=== PATIENT | male | born 1965 | race Caucasian/White ===

== ENCOUNTER → 2021-04-22 14:50 | Outpatient (CLI) | payer OTHER, SELFPAY ==
--- NOTE | 2021-04-22 14:55 | CT_ITS ---
STUDY: CT FACIAL BONES WITHOUT CONTRAST REASON FOR EXAM: Male, 56 years old. Pain and swelling RADIATION DOSAGE (If Supplied By Facility): CTDIvol = ( 33.06 ) mGy, DLP = ( 837.98 ) mGycm TECHNIQUE: The patient was scanned in a multi detector CT scanner. Sagittal and coronal images were reconstructed. Individualized dose optimization techniques were used for this CT. COMPARISON: None. FINDINGS: There is an acute fracture through the anterior nasal spine is soft tissue swelling as well as an acute fracture at the corner of the posterior nose and maxillary sinus and a mildly depressed fracture in the anterior maxillary sinus wall. This is somewhat diffuse soft tissue density within the nares and left maxillary sinus some of which is likely hemorrhage. There is no demonstrated zygomatic arch fracture or pterygoid plate fracture. Mild mucosal thickening noted in the mastoid air cells. CT/Sinus/Facial Bone IMPRESSION: Acute fractures to the anterior nasal spine, the junction of the medial left maxilla and the posterior nasal bone and the anterior inferior maxillary sinus wall. Associated soft tissue swelling There is extensive soft tissue densities within the paranasal sinuses with occlusion of the left ostiomeatal complex, some of this is likely hemorrhage Likely chronic mastoiditis Electronically Signed: Zander Potter MD at 15:29 EST , Service support ,
== END ==
PROVIDERS: PCP Physician Assistant; Referring Provider Otolaryngology; Visit Provider Otolaryngology
DX: J32.8 Other chronic sinusitis (principal)
CPT/HCPCS: 70486

== ENCOUNTER 2021-05-25 06:10 | Day surgery (SDC) | payer OTHER, SELFPAY ==
[2021-05-25] VITALS (12 sets, daily range): BP systolic 111–133; BP diastolic 80–99; PULSE 68–103; RESP 16–18; TEMP 36.2–36.6; O2SAT 88–97; BMI 27.5
--- NOTE | 2021-05-25 06:13 | EKG12_ITS ---
Test Reason : PRE OP Blood Pressure : / mmHG Vent. Rate : 077 BPM Atrial Rate : 077 BPM P-R Int : 184 ms QRS Dur : 092 ms QT Int : 370 ms P-R-T Axes : 061 028 032 degrees QTc Int : 418 ms Normal sinus rhythm Normal ECG No previous ECGs available Confirmed by CESILIA DOWNS, ЕКАТЕРИНА ([id number]), multimedia editor STAS LARSEN ([id number]) on 05/28/2021 8:22:51 AM Referred By: Ricky Hackett Confirmed By:PELON LOMAS MD
[2021-05-25] MEDS: Lactated Ringers 1,000 ML 15 ML IV (06:44)
[2021-05-25 06:50] LABS: Hematocrit 50.4 % (40-54); Hemoglobin 16.7 g/dL (13.0-16.5); Mean Corp Hgb Conc 33.1 g/dL (32-36); Mean Corpuscular Hgb 31.1 pg (27.0-32.0); Mean Corpuscular Volume 93.9 fL (80-94); Platelet Count 305 K/mm3 (150-450); RBC Distribution Width SD 48.4 fl (35.1-43.9); Red Blood Count 5.37 M/mm3 (4.6-6.2); White Blood Count 11.6 K/mm3 (4.4-11.0)
[2021-05-25 07:15] LABS: Anion Gap 6 (5-15); BUN 14 mg/dL (7-18); Calcium,Total 9.1 mg/dL (8.5-10.1); Chloride 108 mmol/L (98-107); Creatinine, Serum 0.82 mg/dL (0.70-1.30); EST Glomerular Filtration Rate 103 mL/min (>60); Est Glom Filt Rate - Afr Amer 125 mL/min (>60); Estimated Creatinine Clearance 96.28 ml/min; Glucose 137 mg/dL (74-106); Potassium 3.7 mmol/L (3.5-5.1); Sodium Level 143 mmol/L (136-145)
--- NOTE | 2021-05-25 07:30 | NASAL_PTH ---
PATIENT: HANNAH CEJA Jr. [place] [facility] [place][id number] AGE/SX: 56/M ROOM: RE05/25/[address]: Dr. Boyd Hackett MD : 1965 BED: DIS: 05/25/2021 SPEC #: [id number] RECD: 05/25/21 12:48 STATUS: LINDA ALMENDAREZ #: [id number] YENNY: 05/25/21 07:[address]: Boyd Hackett DEPT: SURGICAL PATHOLOGY RECD BY: Veronica Khan ENTERED: 05/25/21 13:03 SP TYPE: NASAL SPEC OTHR DR: CATHERINE Sparrow Tissues: A - Ethmoid sinus, NOS B - Ethmoid sinus, NOS Procedures: Decalcification bone/plaque Surgery Specimen Level III HEADER OPERATION: Functional endoscopic sinus surgery, septoplasty, Navigation PRE-OP DIAGNOSIS: Chronic pansinusitis TISSUE SUBMITTED: A ? Right sinus contents, B ? Left sinus contents MICROSCOPIC DIAGNOSIS A. Right sinus contents, curettings: Consistent with chronic sinusitis. Fragments of bone with no pathologic change. B. Left sinus contents, curettings: Consistent with chronic sinusitis. Fragments of bone with no pathologic change. AM:madie 05/28/2021 MICROSCOPIC DESCRIPTION Slides are reviewed. GROSS DESCRIPTION A - Received in fixative is one container labeled with the patient's name and designated right sinus contents. The specimen consists of multiple fragments of pink hemorrhagic soft tissue mixed with fragments of bone and turbinate that in aggregate measure 7.5 x 3 x 0.3 cm. The entire specimen is submitted in three cassettes after decalcification. B - Received in fixative is one container labeled with the patient's name and designated left sinus contents. The specimen consists of multiple fragments of pink hemorrhagic soft tissue mixed with fragments of bone and turbinate that in aggregate measure 7.5 x 3 x 0.3 cm. The entire specimen is submitted in three cassettes after decalcification. / SJ:madie 05/25/2021 TC:3 CPT: 41212 x2, 73548 x2
[2021-05-25] MEDS: Oxymetazoline 0.05% 1 SPRAY SPRAY.BTL 15 SPRAY (07:38)
[2021-05-25] MEDS: Mupirocin Ointment 22gm Tube 1 APPLIC (08:58)
[2021-05-25] MEDS: Lidocaine 1% /Epi 1:100 (20ml) 20 ML Vial (10:00)
--- NOTE | 2021-05-25 10:52 | PCM.DC ---
Discharge Instructions Diet Discharge Diet: No restrictions Activity May shower in (days): 1 Dressing / Incision Call your doctor if your incision/area has: Sudden Increased Bleeding Additional Dressing/Incision Instructions:: nasal saline spray to both nostrils 5 times daily. mupirocin ointment to nose three times daily. sleep with head of bed elevated. Follow Up Care Please Follow Up With: Ricky Hackett MD When: 1 week Test Results: Test results from this visit will be discussed in further detail at your follow-up appointment, if applicable. Discharge Plan Admission Attending Provider: Ricky Hackett Primary Care Provider: Sandie Funk Discharge Orders/Prescriptions Prescriptions: No Action ascorbic acid (vitamin C) [Vitamin C] 500 mg Tablet 500 mg PO DAILY RF: 0 cholecalciferol (vitamin D3) [Vitamin D3] 25 mcg (1,000 unit) Tablet 25 mcg PO DAILY RF: 0
--- NOTE | 2021-05-25 11:10 | PCM.OPRPT ---
Problems Associated Problem List Diagnoses (1) Chronic pansinusitis: (2) Polyp, nasal sinus: (3) Nasal congestion: (4) Hypertrophy of inferior nasal turbinate: (5) Deviated nasal septum: Report of Operation Date of Procedure: 05/25/21 Pre-Operative Diagnosis: 1. nasal congestion 2. nasal septal deviation 3. inferior turbinate hypertrophy, right and left 4. chronic pansinusitis 5. polyp of nasal cavity Post-Operative Diagnosis: 1. nasal congestion 2. nasal septal deviation 3. inferior turbinate hypertrophy, right and left 4. chronic pansinusitis 5. polyp of nasal cavity Surgery/Procedure Performed:: 1. endoscopic maxillary antrostomy with removal of contents, right and left 2. endoscopic total ethmoidecotmy, right and left 3. endoscopic sphenoidotomy with removal of contents, right and left 4. endoscopic frontal sinus exploration removal of contents, right and left 5. septoplasty 6. submucous resection inferior turbinates, right and left 7. excessive removal of polyps, right and left Surgeon: Ricky Hackett Type of Anesthesia: General Description of Procedure: On the day of the procedure, after appropriate informed consent was obtained, the patient was brought to the operating room and placed in a supine position on the operating room table. The patient was placed under general endotracheal anesthesia by the anesthesiologist. The endotracheal tube was secured. image guidance navigation was set up on the face and accuracy was confirmed. the nose was injected with lidocaine/epinephrine and decongested with oxymetazoline-soaked pledgets. given the patient's severe polyps, the microdebrider was used to clear the right and left nasal cavities from polyp tissue. the septum was seen with its severe deviation to the left side anteriorly. a marginal incision was made with a #15 blade on the left side. a submucoperichondrial plane was developed on the patient's left side with a armando elevator. this was taken posteriorly to the bony/cartilaginous junction and inferiorly to the maxillary crest. after an L-strut was marked, a large leftward defection and 2cm bony spur were removed with a D-knife and alejandro rosales. the head of the right and left turbinates were injected with lidocaine/epinephrine. the head of the left inferior turbinate was incised with a 15 blade, dissected submucosally with a armando elevator, reduced using suction electrocautery and outfractured using a boies elevator. the head of the right inferior turbinate was incised with a 15 blade, dissected submucosally with a armando elevator, reduced using suction electrocautery and outfractured using a boies elevator. the submucoperichondrial flaps and the marginal incision were closed with interrupted 4-0 chromic. the zero degree endoscope was used to evaluate the nasal cavity. the superior attachment of the right and left middle turbinate and uncinate processes were injected with lidocaine/epinephrine. the left nasal cavity was evaluated. the middle turbinate was medialized. a large amount ot polypoid tissue was found filling the nose. staying inferior, polyps were removed from the anterior nasal cavity to the choana. 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 a ball probe was used to locate the maxillary os and this was widened. a maxillary antrostomy and uncinectomy were performed with a armando elevator and a suzanne cut. the antrostomy was widened with a back-biter. the ethmoid bulla was entered bluntly with the suction. a total ethmoidectomy was performed with a curette and an upgoing blakesley. this was taken superiorly to the skull base and laterally to the lateral ethmoid cells. a stankewicz maneuver was performed and no laminar defect was noted, but bowing of the periosteum was noted. no orbital fat was seen. the natural sphenoid os was widened with the microdebrider and contents were evacuated. the frontal recess was explored and contents were evacuated. hemostasis was achieved with suction cautery; kunal was placed. the right nasal cavity was evaluated. the middle turbinate was medialized. a large amount ot polypoid tissue was found filling the nose. staying inferior, polyps were removed from the anterior nasal cavity to the choana. a maxillary antrostomy and uncinectomy were performed with a armando elevator and a suzanne cut. the antrostomy was widened with a back-biter. purulent material was evacuated. the ethmoid bulla was entered bluntly with the suction. a total ethmoidectomy was performed with a curette and an upgoing blakesley. this was taken superiorly to the skull base and laterally to the lamina. a stankewicz maneuver was performed and no laminar defect was noted. the natural sphenoid os was widened with the microdebrider and contents were evacuated. the frontal recess was explored and contents were evacuated. hemostasis was achieved with suction cautery; kunal was placed. navarro splints were sutured into place. a nasogastric tube was inserted orally and contents were evacuated. the table was rotated 90 degrees toward the anesthesiologist and was subsequently extubated uneventfully. he was transferred to the PACU in stable condition.
[2021-05-25] MEDS: Acetaminophen/Codeine #3 Tablet 1 TABLET PO (12:33)
== END 2021-05-25 23:59 | disposition home or self-care (01) ==
LOC: SDC 06:12 → AC 06:13
PROVIDERS: Anesthesiology; PCP Physician Assistant; Referring Provider Otolaryngology; Visit Provider Otolaryngology
PROC: (CPT 31267; principal; 2021-05-25 07:00)
DX: J32.4 Chronic pansinusitis (principal); J34.2 Deviated nasal septum; J34.3 Hypertrophy of nasal turbinates; J33.0 Polyp of nasal cavity; Z87.891 Personal history of nicotine dependence; Z20.822 Contact with and (suspected) exposure to COVID-19
CPT/HCPCS: 31267; 30520; 30140; 00160; 31253; 31259; 80048; 85027; 87426; 88304; 88305; 88311; 93005; J7120; J2405